=== PATIENT | male | born 1960 | race Two or more races ===

== ENCOUNTER 2016-07-30 19:35 | Inpatient (IN) | payer OTHER ==
[2016-07-30 19:48] VITALS: BMI 28.3
--- NOTE | 2016-07-30 20:03 | PDOC ---
History of Present Illness - General History Source: Patient Exam Limitations: No Limitations - History of Present Illness Initial Comments: 07/30/16 20:27 Patient is a 56 year old female with significant past medical history of hyperlipidemia, hypertension, and who presents to the ED with post epidural headache. Patient notes that he had his 3rd epidural yesterday done by Dr. Sierra for a collapsed L4-L5. He reports taking Ibuprofen 600 mg around 4 pm today to alleviate the symptoms. He notes that the headache is a frontal headache and has been constant since 11:30 am today. Patient is ambulating and denies any blurry vision or ataxia. Allergy - plavix PCP - Dr. Thorne <Marci San - Last Filed: 07/30/16 22:58> <Khadijah Yusuf - Last Filed: 07/31/16 01:17> - General Chief Complaint: Headache Stated Complaint: HEADACH/NAUSEA Time Seen by Provider: 07/30/16 19:56 Past History <Marci San - Last Filed: 07/30/16 22:58> - Past Medical History Cardiac Disorders: Yes (mi 13 yrs ago) Hypercholesterolemia: Yes Suicide Attempt (Hx): No - Surgical History Cardiac Surgery: Yes (cabg QUAD, 4 STENTS) Cholecystectomy: Yes - Psycho/Social/Smoking Cessation Hx Anxiety: No Suicidal Ideation: No Smoking Status: No Smoking History: Never smoked Number of Cigarettes Smoked Daily: 0 Cigars Per Day: 0 Hx Alcohol Use: No Drug/Substance Use Hx: No Substance Use Type: None <Khadijah Yusuf - Last Filed: 07/31/16 01:17> - Past Medical History Allergies/Adverse Reactions: Allergies Allergy/AdvReac Type Severity Reaction Status Date / Time clopidogrel bisulfate Allergy Intermediate Swelling Verified 07/30/16 19:45 [From Plavix] Home Medications: Ambulatory Orders Aspirin [Ecotrin] 81 mg PO DAILY 07/16/11 Atorvastatin Ca [Lipitor] 80 mg PO HS 07/16/11 Cetirizine HCl [Zyrtec -] 10 mg PO DAILY 06/05/14 Mometasone Furoate [Nasonex] 1 - 2 inh NS BID 06/05/14 Montelukast Na [Singulair -] 10 mg PO HS 06/05/14 Nebivolol HCl [Bystolic] 2.5 mg PO DAILY 07/30/16 Review of Systems - Review of Systems Able to Perform ROS?: Yes Comments:: 07/30/16 20:27 CONSTITUTIONAL: Absent: fever, chills, diaphoresis, generalized weakness, malaise, loss of appetite HEENT: Absent: rhinorrhea, nasal congestion, throat pain, throat swelling, difficulty swallowing, mouth swelling, ear pain, eye pain, visual Changes CARDIOVASCULAR: Absent: chest pain, syncope, palpitations, irregular heart rate, lightheadedness , peripheral edema RESPIRATORY: Absent: cough, shortness of breath, dyspnea with exertion, orthopnea, wheezing, stridor, hemoptysis GASTROINTESTINAL: Absent: abdominal pain, abdominal distension, nausea, vomiting, diarrhea, constipation, melena, hematochezia GENITOURINARY: Absent: dysuria, frequency, urgency, hesitancy, hematuria, flank pain, genital pain MUSCULOSKELETAL: Absent: myalgia, arthralgia, joint swelling SKIN: Absent: rash, itching, pallor HEMATOLOGIC/IMMUNOLOGIC: Absent: easy bleeding, easy bruising, lymphadenopathy, frequent infections ENDOCRINE: Absent: unexplained weight gain, unexplained weight loss, heat intolerance, cold intolerance NEUROLOGIC: Present: headache Absent: focal weakness or paresthesias, dizziness, unsteady gait, seizure, mental status changes, bladder or bowel incontinence PSYCHIATRIC: Absent: anxiety, depression, suicidal or homicidal ideation, hallucinations. <Marci San - Last Filed: 07/30/16 22:58> *Physical Exam - Vital Signs Last Vital Signs Temp Pulse Resp BP Pulse Ox 97.5 F L 76 18 120/76 96 07/30/16 19:45 07/30/16 19:45 07/30/16 19:45 07/30/16 19:45 07/30/16 19:45 - Physical Exam Comments: 07/30/16 20:28 GENERAL: Well developed, well nourished. Awake and alert. No acute distress. HEENT: Normocephalic, atraumatic. PERRLA, EOMI. No conjunctival pallor. Sclera are non- icteric. Moist mucous membranes. Oropharynx is clear. NECK: Supple. Full ROM. No JVD. Carotid pulses 2+ and symmetric, without bruits. No thyromegaly. No lymphadenopathy. CARDIOVASCULAR: Regular rate and rhythm. No murmurs, rubs, or gallops. Distal pulses are 2+ and symmetric. PULMONARY: No evidence of respiratory distress. Lungs clear to auscultation bilaterally. No wheezing, rales or rhonchi. ABDOMINAL: Soft. Non-tender. Non-distended. No rebound or guarding. No organomegaly. Normoactive bowel sounds. MUSCULOSKELETAL Normal range of motion at all joints. No bony deformities or tenderness. No CVA tenderness. EXTREMITIES: No cyanosis. No clubbing. No edema. No calf tenderness. SKIN: Warm and dry. Normal capillary refill. No rashes. No jaundice. NEUROLOGICAL: Alert, awake, appropriate. Cranial nerves 2-12 intact. No deficits to light touch and temperature in face, upper extremities and lower extremities. No motor deficits in the in face, upper extremities and lower extremities. Normoreflexic in the upper and lower extremities. Normal speech. Toes are down-going bilaterally. Gait is normal without ataxia. PSYCHIATRIC: Cooperative. Good eye contact. Appropriate mood and affect. <Marci San - Last Filed: 07/30/16 22:58> - Vital Signs Last Vital Signs Temp Pulse Resp BP Pulse Ox 97.5 F L 76 18 120/76 96 07/30/16 19:45 07/30/16 19:45 07/30/16 19:45 07/30/16 19:45 07/30/16 19:45 <Khadijah Yusuf - Last Filed: 07/31/16 01:17> ED Treatment Course - LABORATORY CBC & Chemistry Diagram: 07/30/16 20:30 07/30/16 20:30 - RADIOLOGY Radiology Studies Ordered: 07/30/16 22:53 EXAM: HEAD CT WITHOUT CONTRAST FINDINGS: There is no CT evidence of acute cortical territorial infarction, bleed, mass lesion, mass effect, hydrocephalus or abnormal extraaxial collection. Multiple scattered small intracranial air collection seen in the bilateral cavernous sinuses, pre-pontine cistern, tentorium and the posterior falx area, presumably introduced iatrogenically during the epidural injection procedure. No evidence of intraventricular air is seen. No evidence of acute skull fracture seen. Upper paranasal sinus cavities appear clear. No acute skull or skull base fracture or calvarial lesion is noted. <Marci San - Last Filed: 07/30/16 22:58> - LABORATORY CBC & Chemistry Diagram: 07/30/16 20:30 07/30/16 20:30 <Khadijah Yusuf - Last Filed: 07/31/16 01:17> Medical Decision Making - Medical Decision Making 07/30/16 20:54 A call was placed to Dr. Sierra at his office, but reached mail box. A call was placed to Dr. Sierra on his cellphone. Case discussed. 07/30/16 22:53 A page was placed to Dr. Joan Terrell at his service. 07/30/16 22:[address] Bert Terrell. A call was placed to Dr. Nicola Sierra at his cell to discuss the case. Case was discussed. <Marci San - Last Filed: 07/30/16 22:58> - Medical Decision Making 07/30/16 22:47 56-year-old male had seen his pain management doctor yesterday and received an epidural injection of steroids. He complained of a headache that was initially occipital and now it is frontal headache. He also has complaints of nausea. He does not have a fever. There is no visual changes. Patient is ambulatory. He is alert and oriented 3 Radiologist just called me and said apparently there is a puncture of the dura because there are small air bubbles that he sees on the patient's CAT scan of his head - I spoke with neurosurgery Dr Bert Terrell who stated I should address this issue with Dr Mack . I had already spoke to Dr Mack -the pt has been started on rocephin and vanco -this pt is to be NPO after midnight 07/31/16 01:15 <Khadijah Yusuf - Last Filed: 07/31/16 01:17> *DC/Admit/Observation/Transfer - Attestations Scribe Attestion: 07/30/16 20:28 Documentation prepared by LISA Montaño, acting as medical billing and coding specialist for Khadijah Yusuf MD. <Marci San - Last Filed: 07/30/16 22:58> - Discharge Dispostion Admit: Yes <Khadijah Yusuf - Last Filed: 07/31/16 01:17> Diagnosis at time of Disposition: Status post epidural steroid injection, Post-dural puncture headache Headache Qualifiers: Headache type: other headache syndrome Qualified Code(s): G44.89 - Other headache syndrome - Referrals Referrals: Orlando Thorne MD [Primary Care Provider] -
[2016-07-30] MEDS ORDERED: ONDANSETRON 4 MG/2 ML VIAL IVPUSH ONE (20:08)
[2016-07-30] MEDS ORDERED: SODIUM CHLORIDE 1,000 ML IV STA (20:09)
[2016-07-30] MEDS ORDERED: METOCLOPRAMIDE HCL INJECTION 10 MG/2 ML VIAL IVPUSH ONE (20:10)
[2016-07-30] MEDS ORDERED: METOCLOPRAMIDE HCL INJECTION 10 MG/2 ML VIAL ONE (20:33)
[2016-07-30] MEDS ORDERED: ONDANSETRON 4 MG/2 ML VIAL ONE (20:34)
[2016-07-30 20:44] LABS: BASOPHIL 0.1 % (0-2.0); MCH 29.5 pg (25.7-33.7); MCHC 33.5 g/dl (32.0-35.9); MEAN CELL VOLUME 88.1 fl (80-96); MEAN PLT VOLUME 8.8 fl (7.5-11.1); NEUTROPHILS 86.2 % (42.8-82.8); PLATELET COUNT 215 K/MM3 (134-434); RDW 14.3 % (11.9-15.9); WHITE BLOOD COUNT 19.2 K/mm3 (4.0-10.0)
[2016-07-30 21:04] LABS: ALBUMIN 3.8 g/dl (3.4-5.0); ANION GAP 8 (8-16); CO2 25 mmol/L (21-32); GLUCOSE,RANDOM 171 mg/dL (74-106); SGOT/AST 20 U/L (15-37)
[2016-07-30 21:11] LABS: ALK PHOS 68 U/L (45-117); SGPT/ALT 35 U/L (12-78); TOT PROT 6.9 g/dl (6.4-8.2)
[2016-07-30] MEDS ORDERED: CEFTRIAXONE 2 GM in DEXTROSE 5%-WATER - 100 ML IVPB ONE (23:02)
[2016-07-30] MEDS ORDERED: VANCOMYCIN 1,000 MG in DEXTROSE 5%-WATER - 250 ML IVPB ONE (23:03)
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
[2016-07-30] MEDS ORDERED: SODIUM CHLORIDE 1,000 ML IV SCH (23:45)
--- NOTE | 2016-07-31 00:12 | CONSULT ---
Consult Consult Specialty:: Pain management Reason for Consultation:: Headache - History of Present Illness Chief Complaint: Headache s/p Lumbar epidural steroid injection. History of Present Illness: 56 yr old male with h/o Chronic Low back pain with lumbar disk herniation had Lumbar epidural steroid injection on 07/29/2016. He has headache, nausia and was admitted to r/o spinal headache. CT head was done and WBC count was high. He also has h/o sinusitis. Currently his headache is 2/10 and sitting comfortably . - History Source History Provided By: Patient Limitations to Obtaining History: No Limitations - Past Medical History Cardio/Vascular: Yes: HTN, Other (CAD) ENT: Yes: Sinusitis - Past Surgical History Past Surgical History: Yes: CABG - Alcohol/Substance Use Hx Alcohol Use: No - Smoking History Smoking history: Never smoked Aproximately how many cigarettes per day: 0 - Social History Usual Living Arrangement: With Spouse Home Medications - Allergies Allergies/Adverse Reactions: Allergies Allergy/AdvReac Type Severity Reaction Status Date / Time clopidogrel bisulfate Allergy Intermediate Swelling Verified 07/30/16 19:45 [From Plavix] - Home Medications Home Medications: Ambulatory Orders Aspirin [Ecotrin] 81 mg PO DAILY 07/16/11 Atorvastatin Ca [Lipitor] 80 mg PO HS 07/16/11 Cetirizine HCl [Zyrtec -] 10 mg PO DAILY 06/05/14 Mometasone Furoate [Nasonex] 1 - 2 inh NS BID 06/05/14 Montelukast Na [Singulair -] 10 mg PO HS 06/05/14 Nebivolol HCl [Bystolic] 2.5 mg PO DAILY 07/30/16 Review of Systems - Review of Systems Constitutional: reports: Other (nausia) Eyes: reports: No Symptoms HENT: reports: No Symptoms Neck: reports: No Symptoms Cardiovascular: reports: No Symptoms Respiratory: reports: No Symptoms Gastrointestinal: reports: No Symptoms Genitourinary: reports: No Symptoms Musculoskeletal: reports: No Symptoms Neurological: reports: Other (Headache) Physical Exam Vital Signs: Vital Signs Temperature 97.5 F L 07/30/16 19:45 Pulse Rate 76 07/30/16 19:45 Respiratory Rate 18 07/30/16 19:45 Blood Pressure 120/76 07/30/16 19:45 O2 Sat by Pulse Oximetry (%) 96 07/30/16 19:45 Constitutional: Yes: Well Nourished Eyes: Yes: WNL HENT: Yes: WNL Neck: Yes: WNL Cardiovascular: Yes: WNL Respiratory: Yes: WNL Gastrointestinal: Yes: WNL Musculoskeletal: Yes: WNL Edema: No Peripheral Pulses WNL: Yes Neurological: Yes: WNL ...Motor Strength: WNL Labs: CBC, BMP 07/30/16 20:30 07/30/16 20:30 Current Medications Generic Name Dose Route Start Last Admin Trade Name Steph PRN Reason Stop Dose Admin Sodium Chloride 1,000 mls @ 75 mls/hr 07/30/16 23:45 Normal Saline - IV ASDIR [facility] Laboratory Results - last 24 hr 07/30/16 07/30/16 20:30 20:30 WBC 19.2 H D RBC 5.29 Hgb 15.6 Hct 46.6 MCV 88.1 MCHC 33.5 RDW 14.3 Plt Count 215 MPV 8.8 Neutrophils % 86.2 H D Lymphocytes % 7.6 L D Monocytes % 6.1 Eosinophils % 0.0 D Basophils % 0.1 Sodium 140 Potassium 4.2 Chloride 107 Carbon Dioxide 25 Anion Gap 8 BUN 13 D Creatinine 1.0 D Creat Clearance w eGFR > 60 Random Glucose 171 H D Calcium 9.0 Total Bilirubin 1.0 D AST 20 ALT 35 Alkaline Phosphatase 68 Total Protein 6.9 Albumin 3.8 Assessment/Plan Discussed in detail with patient and family member. continue current care. patient will be NPO. We will review CT head with Radiologist and reassess the patient, If needed , Blood patch patch may be done. patient will get IV antibiotics. Thanks for your kind referral.
[2016-07-31] MEDS ORDERED: VANCOMYCIN 1 GRAM (PRE-DOCKED) 250 ML IVPB ONE ×2 (00:16→09:33)
[2016-07-31] MEDS ORDERED: CEFTRIAXONE 100 ML IVPB ONE ×2 (00:16→09:33)
[2016-07-31] MEDS ORDERED: ACETAMINOPHEN INJECTION 100 ML IVPB ONE ×2 (06:58→14:30)
[2016-07-31] MEDS: ACETAMINOPHEN 1000 MG/100 ML VIAL (NON FORMULARY) IVPB PRN ×2 (07:05→14:31)
[2016-07-31 07:16] LABS: BASOPHIL 0.2 % (0-2.0); MCH 29.7 pg (25.7-33.7); MCHC 33.3 g/dl (32.0-35.9); MEAN CELL VOLUME 89.3 fl (80-96); MEAN PLT VOLUME 9.3 fl (7.5-11.1); NEUTROPHILS 82.7 % (42.8-82.8); PLATELET COUNT 185 K/MM3 (134-434); RDW 14.3 % (11.9-15.9); WHITE BLOOD COUNT 19.1 K/mm3 (4.0-10.0)
[2016-07-31 08:04] LABS: CALCIUM 9.1 mg/dL (8.5-10.1); CREATININE 0.9 mg/dL (0.7-1.3)
[2016-07-31] MEDS ORDERED: VANCOMYCIN 1 GRAM (PRE-DOCKED) 1,000 MG/250 ML BAG IVPB SCH (10:00)
[2016-07-31] MEDS ORDERED: CEFTRIAXONE 100 ML IVPB SCH (10:00)
--- NOTE | 2016-07-31 11:03 | EKG ---
Test Reason : Blood Pressure : / mmHG Vent. Rate : 079 BPM Atrial Rate : 079 BPM P-R Int : 180 ms QRS Dur : 092 ms QT Int : 404 ms P-R-T Axes : 043 -20 022 degrees QTc Int : 463 ms NORMAL SINUS RHYTHM POSSIBLE LEFT ATRIAL ENLARGEMENT INFERIOR INFARCT (CITED ON OR BEFORE 20-JUN-2007) ABNORMAL ECG WHEN COMPARED WITH ECG OF 31-JUL-2016 00:37, COMPARISON EKG NOT AVAILABLE Confirmed by GAEL MALDONADO MD ([id number]) on 07/31/2016 11:03:32 AM Referred By: Confirmed By:GAEL MALDONADO MD
--- NOTE | 2016-07-31 11:31 | PN ---
Progress Note (short form) - Note Progress Note: NEUROSURGERY CONSULT DICTATED 56 yo RH male with significant past medical history of hyperlipidemia, hypertension and recent sinusitis c/o spinal headaches post epidural injection on Sunday. This is his 3rd epidural yesterday done by Dr. Sierra for L4-L5 disc problem and B sciatica. Headache is a frontal and has been constant since yesterday AM. + Nausea. No fever/chill or neck stiffness/pain. Patient is ambulating and denies any photophobia, blurry vision or ataxia. NO B/B incontinence. PE: AF, VSS General- unremarkable, no nuchal rigidity CN- intact; Motor- B UE/LE 5/5; Sensation- intact LT/vibration; DTR- 1+ throughout Head CT- no bleed or fx, air in quadrigeminal cistern and supercerebellar cistern WBC 19.1 Spinal headaches s/p epidural Medical management and blood patch per Dr Sierra O2 to help pneumocephalus resolve Pt advised to be on bedrest and avoid straining DVT prophylaxis per medical team ID input The above d/w admitting team Ms Terrell
[2016-07-31] MEDS ORDERED: SODIUM CHLORIDE 1,000 ML IV SCH (14:53)
[2016-07-31] MEDS ORDERED: KETOROLAC TROMETHAMINE 30 MG/1 ML VIAL IVPUSH ONE (15:15)
--- NOTE | 2016-07-31 15:54 | PN ---
Progress Note (short form) - Note Progress Note: ID Consult dictated Pneumocephalus Headache secondary to pneumocephalus Doubt meningitis Leukocytosis, probably steroid-induced Obtain blood c/s Empiric vancomycin/ ceftazidime Repeat CBC Case discussed with Drs. Terrell and Mariela
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
--- NOTE | 2016-07-31 17:56 | PN ---
Progress Note (short form) - Note Progress Note: 56 yr old male with intermittent PRATT 2-3. getting better . Neurosurgical and ID consult appreciated. nausia resloved. PRATT is getting better. Discussed with Radiologist about CT head. Litttle pneumocoele noted and advised for repeat CT in 48 hrs. no B/B incontinence, Blood culture report Pending P/E VSS , AAO x3 , No neuerological deficit. sitting comfortably on bed. Family members were present. Labs - revuiwied. Laboratory Tests 07/30/16 07/30/16 07/31/16 20:30 20:30 06:05 WBC 19.2 H D 19.1 H RBC 5.29 5.18 Hgb 15.6 15.4 Hct 46.6 46.3 MCV 88.1 89.3 MCHC 33.5 33.3 RDW 14.3 14.3 Plt Count 215 185 MPV 8.8 9.3 Neutrophils % 86.2 H D 82.7 Lymphocytes % 7.6 L D 9.1 Monocytes % 6.1 8.0 Eosinophils % 0.0 D 0.0 Basophils % 0.1 0.2 Sodium 140 Potassium 4.2 Chloride 107 Carbon Dioxide 25 Anion Gap 8 BUN 13 D Creatinine 1.0 D Creat Clearance w eGFR > 60 Random Glucose 171 H D Calcium 9.0 Total Bilirubin 1.0 D AST 20 ALT 35 Alkaline Phosphatase 68 Total Protein 6.9 Albumin 3.8 07/31/16 06:15 WBC RBC Hgb Hct MCV MCHC RDW Plt Count MPV Neutrophils % Lymphocytes % Monocytes % Eosinophils % Basophils % Sodium 142 Potassium 4.9 Chloride 109 H Carbon Dioxide 26 Anion Gap 7 L BUN 12 Creatinine 0.9 Creat Clearance w eGFR Random Glucose 110 H D Calcium 9.1 Total Bilirubin AST ALT Alkaline Phosphatase Total Protein Albumin Impression. 1. spinal PRATT s/p dural Puncture. 2. sinusitis Plan: discussed in detail about spinal PRATT and blood patch. He preferred to go conservative management and observe if no improvement , then only Blood patch. Also wants to wait till blood culture report / Dr. Abreu advice. continue current care. Toradol 30 mg IM BID PRN Headache. Thanks Dr. Sierra.
[2016-07-31] MEDS: CEFTAZIDIME PENTAHYDRATE 2 GM in DEXTROSE 5%-WATER - 100 ML IVPB SCH (19:01)
[2016-07-31 20:35] LABS: URINE APPEARANCE CLEAR; URINE BILIRUBIN NEGATIVE (NEGATIVE); URINE BLOOD NEGATIVE (NEGATIVE); URINE COLOR STRAW; URINE GLUCOSE (UA) 1+ (NEGATIVE); URINE KETONE NEGATIVE (NEGATIVE); URINE LEUK ESTERASE NEGATIVE (NEGATIVE); URINE NITRITE NEGATIVE (NEGATIVE); URINE PROTEIN NEGATIVE (NEGATIVE); URINE UROBILINOGEN NEGATIVE E.U./dl (0.2-1.0)
--- NOTE | 2016-07-31 20:53 | CONS ---
DATE OF CONSULTATION: DATE OF DICTATION: 07/31/2016 INFECTIOUS DISEASE CONSULTATION HISTORY OF PRESENT ILLNESS: The patient is a 56-year-old male who is evaluated for possible meningitis. He has a history of chronic low back pain secondary to his collapsed L4-L5 vertebrae. He had undergone 3 epidural steroid injections the last one of which was on Friday July 29, 2016. After the injection, he developed occipital headache which later became a frontal headache and nausea. He presented to the emergency room where CAT scan of the head was performed and showed air in the bilateral cavernous sinuses and subarachnoid spaces. He was noted to have a white blood cell count of 19.1. He was empirically treated with vancomycin and ceftriaxone for possible [employer] infection. He denies any fever or chills. He has had no photophobia, neck pain or rigidity. He is ambulatory. At the present time, he is seated in bed. He is eating. He appears in no acute distress without evidence of photophobia or neck pain. He does have some mild discomfort at the low back area. PAST MEDICAL HISTORY: Positive for coronary artery disease, myocardial infarction, hypertension, hyperlipidemia. PAST SURGICAL HISTORY: Status post coronary artery stents, coronary artery bypass graft, cholecystectomy. ALLERGIES: PLAVIX. MEDICATION: Include Bystolic, Singulair, Zyrtec, Lipitor, Ecotrin. SOCIAL HISTORY: Lives at home with his significant other. Nonsmoker, nondrinker. SYSTEMS REVIEW: Neurologic: As per HPI. Cardiac: Negative chest pain or palpitations. Respiratory: Negative cough or sputum production. Gastrointestinal: Negative vomiting or diarrhea. Genitourinary: Negative for urinary tract infection. LABORATORY DATA: White count 19.1, 86 neutrophils, 7 lymphocytes, 6 monocytes, hematocrit 46.3, platelet count 185, creatinine 0.9. CAT scan as mentioned. PHYSICAL EXAMINATION: General: He is awake and alert, he is seated in bed, eating. He is in no acute distress. No photophobia. Vital signs: Temperature 97.8, blood pressure 99/50, pulse 53 regular, respirations 18 per minute. HEENT: Sclerae anicteric. Oropharynx negative. Neck: Supple. No tender to flexion, no nuchal rigidity. Cardiovascular: Heart sounds S1, S2. Respiratory: Lungs clear. Abdomen: Soft. No tenderness elicited. No mass, rebound, or rigidity. No tenderness elicited over the lumbar spine. Extremities: Negative for edema. IMPRESSION: 1. Pneumocephalus. 2. Headache secondary to pneumocephalus. 3. Doubt meningitis. 4. Leukocytosis probably steroid induced. Will obtain blood cultures, continue antibiotic coverage with vancomycin and ceftazidime pending cultures. Repeat CBC in a.m. Case was discussed with Drs. Sierra and Xander. Will follow. Thank you for the kind referral. IHSAN CARRILLO M.D. [id number]
[2016-07-31] MEDS: VANCOMYCIN 1 GRAM (PRE-DOCKED) 250 ML IVPB SCH (22:18)
[2016-07-31] MEDS: MONTELUKAST NA 10 MG TABLET PO SCH (22:18)
[2016-07-31] MEDS: ATORVASTATIN CA 80 MG TABLET (FP) PO SCH (22:18)
[2016-08-01] MEDS ORDERED: ZOLPIDEM TARTRATE 5 MG TABLET PO PRN (01:12)
[2016-08-01] MEDS: CEFTAZIDIME PENTAHYDRATE 2 GM in DEXTROSE 5%-WATER - 100 ML IVPB SCH ×3 (01:25→17:56)
[2016-08-01 07:55] LABS: BASOPHIL 0.1 % (0-2.0); EOSINOPHIL 0.1 % (0-4.5); MCH 29.6 pg (25.7-33.7); MCHC 33.5 g/dl (32.0-35.9); MEAN CELL VOLUME 88.4 fl (80-96); NEUTROPHILS 72.1 % (42.8-82.8); PLATELET COUNT 154 K/MM3 (134-434); RDW 14.5 % (11.9-15.9); WHITE BLOOD COUNT 12.2 K/mm3 (4.0-10.0)
--- NOTE | 2016-08-01 08:12 | PN ---
Progress Note (short form) - Note Progress Note: NEUROSURGERY Headaches OK overnight, worse this am again Some nausea PE: Tmax 98.3, AF, VSS General- unremarkable, no nuchal rigidity CN- intact; Motor- B UE/LE 5/5; Neck- no nuchal rigidity; Sensation- intact LT/ vibration; DTR- 1+ throughout Head CT- no bleed or fx, air in quadrigeminal cistern and supercerebellar cistern WBC 19.1; new CBC pending; blood and urine culture pending Spinal headaches s/p epidural Medical management and blood patch per Dr Sierra O2 to help pneumocephalus resolve Pt advised to be on bedrest and avoid straining DVT prophylaxis per medical team ID input noted; d/w Dr Abreu On vanco and ceftrixone prophylactically
[2016-08-01 08:34] LABS: ALBUMIN 3.1 g/dl (3.4-5.0); ALK PHOS 49 U/L (45-117); ANION GAP 8 (8-16); BILIRUBIN,TOTAL 0.8 mg/dL (0.2-1.0); CO2 27 mmol/L (21-32); CREATININE 0.9 mg/dL (0.7-1.3); GLUCOSE,RANDOM 102 mg/dL (74-106); SGOT/AST 10 U/L (15-37); SGPT/ALT 24 U/L (12-78); TOT PROT 5.7 g/dl (6.4-8.2)
[2016-08-01] MEDS ORDERED: ACETAMINOPHEN 325 MG TABLET (FP) PO PRN (09:22)
[2016-08-01] MEDS ORDERED: FAMOTIDINE 20 MG/50 ML IVPB 50 ML IVPB ONE (09:23)
[2016-08-01] MEDS ORDERED: KETOROLAC TROMETHAMINE 30 MG/1 ML VIAL IVPUSH PRN (09:23)
[2016-08-01] MEDS: SODIUM CHLORIDE 1,000 ML IV SCH (09:30)
[2016-08-01] MEDS: VANCOMYCIN 1 GRAM (PRE-DOCKED) 250 ML IVPB SCH ×2 (09:49→21:56)
[2016-08-01] MEDS ORDERED: NEBIVOLOL 2.5 MG TABLET (FP) PO SCH (10:00)
[2016-08-01] MEDS: NEBIVOLOL 2.5 MG TABLET (FP) PO SCH (10:03)
--- NOTE | 2016-08-01 12:44 | CONS ---
DATE OF CONSULTATION: 07/31/2016 REQUESTING PHYSICIAN: CARLOS Weber CHIEF COMPLAINT: Spinal headache. HISTORY OF PRESENT ILLNESS: The patient is a 56-year-old right-handed male with history of hypertension, VT, coronary stents, cardiac bypass surgery, hypercholesterolemia, as well as lumbar disk disease, who complains of increasing headache with associated nausea after an epidural steroid injection on Sunday. The headache started on Sunday morning and was associated with some nausea. The headache was becoming pounding and it was mostly frontal. He denies diplopia and had no neck stiffness or fever or chills. He did state that for about a couple weeks back, he had a history of sinusitis and was treated with Flonase and Zyrtec. Presently, he has no chest pain or shortness of breath. He has no other cardiac symptoms. This is his 3rd epidural steroid injection for his L4-5 herniated disk. He did experience sciatica radiating down to the buttocks, posterior thigh and calf. Past medical history is significant for hypertension, coronary artery disease, CABG, cardiac stent x4, right shoulder arthroscopic procedure, cholecystitis, hypercholesterolemia. Medication currently includes vancomycin, ceftriaxone, and Tylenol. Allergies to PLAVIX. In terms of social history, he does not smoke or drink. He works in the [employer]. Review of systems is otherwise negative for other major cardiovascular, pulmonary, gastrointestinal, genitourinary, endocrinological, neurological, or psychological problem except for the above. PHYSICAL EXAMINATION: Vital Signs: Temperature is 97.8, blood pressure is 117/51, pulse rate 59. HEENT: Normocephalic, atraumatic. Anicteric. Neck: Supple with no carotid bruit. He has no nuchal rigidity. Coronary: Regular rhythm. Lungs: Clear bilaterally. Abdomen: Benign. Extremities: No signs of DVT. Neurologic: He is awake and alert, oriented x4. Cranial nerves examination is intact, 2-12. Motor examination shows 5/5 strength in the upper and lower extremity. Sensory examination intact to light touch. Deep tendon reflexes are 1+ throughout. There is no pathological lower tract sign. Gait is not tested, for safety reasons. Laboratory examination shows white blood cell count to be 19,100, hemoglobin 15.1, and platelet count is 185,000. Serum sodium is 142 and potassium 4.9, BUN [address], [address] scan of the head demonstrated air near the subarachnoid space near the quadrigeminal cistern as well as the suprasellar cistern. There is no acute hemorrhage or fracture. There is no hydrocephalus. IMPRESSION: 1. Pneumocephalus with spinal headache, status post epidural injection. 2. Lumbar disk disease, L4-5, by report. 3. Coronary artery disease/hypertension, status post stent placement and coronary artery bypass surgery. 4. Hypercholesterolemia. 5. History of sinusitis. RECOMMENDATIONS: The patient presents with 1-day history of acute onset of frontal headaches, with associated mild nausea. This occurred after his 3rd epidural steroid injection about [address] scan demonstrated pneumocephalus in the quadrigeminal and suprasellar cisterns consistent with pneumocephalus. Given his spinal headache, potential blood patch will be reasonable and the patient should remain under the care of Dr. Sierra, the patient's pain management physician. He is started on vancomycin and ceftriaxone and infectious disease consultation is recommended. Supplemental O2 may help the pneumocephalus resolve and is ordered accordingly. Since the patient is under the care of another physician for his lumbar spine condition, I will leave the management and treatment to the patient's current treating physician, Dr. Sierra. ID consult is recommended to assess his elevated WBC. YING RODRIGUEZ M.D. [id number] MTDD
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
--- NOTE | 2016-08-01 15:18 | PN ---
Progress Note, Physician History of Present Illness: Reports improvement in headache C/O nausea No vomiting No fever/ chills Blood c/s (-) WBC improved - Current Medication List Current Medications: Active Medications Acetaminophen (Tylenol -) 650 mg PO Q4H PRN PRN Reason: FEVER OR PAIN Last Admin: 08/01/16 09:47 Dose: 650 mg Atorvastatin Calcium (Lipitor -) 80 mg PO HS [facility] Last Admin: 07/31/16 22:18 Dose: 80 mg Vancomycin HCl (Vancomycin (Pre-Docked)) 250 mls @ 200 mls/hr IVPB BID [facility] Last Admin: 08/01/16 09:49 Dose: 200 mls/hr Ceftazidime 2 gm/ Dextrose 100 mls @ 200 mls/hr IVPB Q8H-IV [facility] Last Admin: 08/01/16 09:49 Dose: 200 mls/hr Sodium Chloride (Normal Saline -) 1,000 mls @ 75 mls/hr IV ASDIR [facility] Last Admin: 08/01/16 09:30 Dose: 75 mls/hr Ketorolac Tromethamine (Toradol Injection -) 30 mg IVPUSH BID PRN PRN Reason: PAIN Stop: 08/06/16 09:59 Montelukast Sodium (Singulair -) 10 mg PO HS [facility] Last Admin: 07/31/16 22:18 Dose: 10 mg Nebivolol (Bystolic -) 2.5 mg PO DAILY [facility] Last Admin: 08/01/16 10:03 Dose: Not Given Zolpidem Tartrate (Ambien -) 5 mg PO HS PRN PRN Reason: INSOMNIA Last Admin: 08/01/16 01:26 Dose: 5 mg - Objective Vital Signs: Vital Signs Temperature 97.8 F 08/01/16 14:43 Pulse Rate 68 08/01/16 14:43 Respiratory Rate 20 08/01/16 14:43 Blood Pressure 121/73 08/01/16 14:43 O2 Sat by Pulse Oximetry (%) 94 L 07/31/16 21:00 Constitutional: Yes: No Distress Eyes: Yes: Other (no photophobia) Neck: Yes: Supple Cardiovascular: Yes: Regular Rate and Rhythm, S1, S2 Respiratory: Yes: CTA Bilaterally Gastrointestinal: Yes: Normal Bowel Sounds, Soft. No: Tenderness Edema: No Labs: CBC, BMP 08/01/16 06:20 08/01/16 06:20 Assessment/Plan Pneumocephalus Headache secondary to pneumocephalus Doubt meningitis For repeat CT head today Continue empiric antibiotics pending c/s
[2016-08-01] MEDS ORDERED: ONDANSETRON 4 MG/2 ML VIAL IVPUSH PRN (17:19)
[2016-08-01] MEDS: ATORVASTATIN CA 80 MG TABLET (FP) PO SCH (21:56)
[2016-08-01] MEDS: MONTELUKAST NA 10 MG TABLET PO SCH (21:56)
--- NOTE | 2016-08-01 22:45 | HOSP ---
Subjective - Review of Symptoms Events since last encounter: Hospitalist Encounter Notified by RN that the patient reports nausea, left chest pain and arm pain. EKG and Trop I ordered Arrived to bedside, patient is alert and oriented, reports left arm pain, left chest pain starting tonight. On exam see PE EKG- SB 50 with left atrial enlargement, inferior infarct age undetermined, change- bradycardia when compared to prior study Instructed RN to give Zofran and pain medicine, will continue to monitor. 0100- Notified by RN, Trop I result, added on CK, CKMB, per RN patient reports chest pain has decreased, patient is resting comfortably. Will transfer to Telemetry for monitoring Asa ordered Cardiac Consult-[facility] Will trend CE x2 Cardiovascular: Yes: Chest Pain Gastrointestinal: Yes: Nausea Musculoskeletal: Yes: Extremity Pain (left) Physical Examination Vital Signs: Vital Signs Temperature 97.4 F L 08/01/16 19:00 Pulse Rate 46 L 08/01/16 20:02 Respiratory Rate 20 08/01/16 20:02 Blood Pressure 112/73 08/01/16 20:02 O2 Sat by Pulse Oximetry (%) 96 08/01/16 09:00 Constitutional: Yes: Well Nourished, Calm Cardiovascular: Yes: Bradycardia, S1, S2, Other (chest pain is reproducible on palpation) Respiratory: Yes: WNL, Regular, CTA Bilaterally Neurological: Yes: WNL, Alert, Oriented Psychiatric: Yes: WNL, Alert, Oriented Labs: CBC, BMP 08/01/16 06:20 08/01/16 06:20
[2016-08-01] MEDS ORDERED: ONDANSETRON 4 MG/2 ML VIAL IVPUSH ONE (22:47)
[2016-08-01 23:35] LABS: TROPONIN I 0.1 ng/ml (0.00-0.05)
[2016-08-02] MEDS ORDERED: ASPIRIN 81 MG CHEWABLE TABLETS PO ONE (01:19)
[2016-08-02] MEDS: CEFTAZIDIME PENTAHYDRATE 2 GM in DEXTROSE 5%-WATER - 100 ML IVPB SCH ×2 (02:36→12:22)
[2016-08-02 04:29] LABS: TROPONIN I 0.09 ng/ml (0.00-0.05)
[2016-08-02 08:09] LABS: BASOPHIL 0.3 % (0-2.0); EOSINOPHIL 1.3 % (0-4.5); MCH 29.4 pg (25.7-33.7); MCHC 33.2 g/dl (32.0-35.9); MEAN CELL VOLUME 88.5 fl (80-96); MEAN PLT VOLUME 9.2 fl (7.5-11.1); NEUTROPHILS 56.5 % (42.8-82.8); PLATELET COUNT 164 K/MM3 (134-434); RDW 14.4 % (11.9-15.9); WHITE BLOOD COUNT 10.6 K/mm3 (4.0-10.0)
--- NOTE | 2016-08-02 09:04 | PN ---
Progress Note (short form) - Note Progress Note: NEUROSURGERY Headaches OK overnight, some nausea yesterday Tmax 98.3, HR 40-60 In telemetry General- unremarkable, no nuchal rigidity CN- intact; Motor- B UE/LE 5/5; Neck- no nuchal rigidity; Sensation- intact LT/ vibration; DTR- 1+ throughout Head CT- no bleed or fx, decreasing air in basal cistern WBC 10.6; trending down Troponin 0.09 and 0.10 Spinal headaches s/p epidural - improved Medical management for spinal disease per Dr Sierra Pt advised to avoid straining DVT prophylaxis per medical team ID input noted Consider cardiology input per medical team
[2016-08-02] MEDS ORDERED: PT OWN MED DRAWER 7, Y5N ONE (09:09)
[2016-08-02 09:16] LABS: ALBUMIN 3.2 g/dl (3.4-5.0); CO2 29 mmol/L (21-32)
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
[2016-08-02 09:48] LABS: ANION GAP 8 (8-16)
[2016-08-02 09:50] LABS: ALK PHOS 59 U/L (45-117); BILIRUBIN,TOTAL 0.8 mg/dL (0.2-1.0); CALCIUM 8.4 mg/dL (8.5-10.1); CHOLESTEROL 126 mg/dL (50-200); GLUCOSE,RANDOM 106 mg/dL (74-106); LDL CHOLESTEROL (ONLY SJRH) 64 mg/dL (5-100); PHOSPHOROUS 3.8 mg/dL (2.5-4.9); SGOT/AST 18 U/L (15-37); SGPT/ALT 29 U/L (12-78); TOT PROT 6.2 g/dl (6.4-8.2)
[2016-08-02] MEDS: SODIUM CHLORIDE 1,000 ML IV SCH (09:57)
[2016-08-02] MEDS: VANCOMYCIN 1 GRAM (PRE-DOCKED) 250 ML IVPB SCH (09:58)
[2016-08-02] MEDS: NEBIVOLOL 2.5 MG TABLET (FP) PO SCH (09:58)
[2016-08-02] MEDS ORDERED: amLODIPine BESYLATE 2.5 MG TABLET (FP) PO SCH (10:00)
[2016-08-02 11:29] LABS: TROPONIN I 0.09 ng/ml (0.00-0.05)
--- NOTE | 2016-08-02 12:48 | PN ---
Progress Note, Physician History of Present Illness: Headache, nausea improved No photophobia/ neck siffness No fever/ chills Cultures no growth - Current Medication List Current Medications: Active Medications Acetaminophen (Tylenol -) 650 mg PO Q4H PRN PRN Reason: FEVER OR PAIN Last Admin: 08/01/16 09:47 Dose: 650 mg Amlodipine Besylate (Norvasc -) 2.5 mg PO DAILY [facility] Last Admin: 08/02/16 11:12 Dose: 2.5 mg Atorvastatin Calcium (Lipitor -) 80 mg PO HS [facility] Last Admin: 08/01/16 21:56 Dose: 80 mg Vancomycin HCl (Vancomycin (Pre-Docked)) 250 mls @ 200 mls/hr IVPB BID [facility] Last Admin: 08/02/16 09:58 Dose: 200 mls/hr Ceftazidime 2 gm/ Dextrose 100 mls @ 200 mls/hr IVPB Q8H-IV [facility] Last Admin: 08/02/16 12:22 Dose: 200 mls/hr Ketorolac Tromethamine (Toradol Injection -) 30 mg IVPUSH BID PRN PRN Reason: PAIN Stop: 08/06/16 09:59 Montelukast Sodium (Singulair -) 10 mg PO HS [facility] Last Admin: 08/01/16 21:56 Dose: 10 mg Ondansetron HCl (Zofran Injection) 4 mg IVPUSH Q6H PRN PRN Reason: NAUSEA AND/OR VOMITING Last Admin: 08/01/16 17:47 Dose: 4 mg Zolpidem Tartrate (Ambien -) 5 mg PO HS PRN PRN Reason: INSOMNIA Last Admin: 08/01/16 01:26 Dose: 5 mg - Objective Vital Signs: Vital Signs Temperature 98.2 F 08/02/16 09:00 Pulse Rate 48 L 08/02/16 09:00 Respiratory Rate 14 08/02/16 09:00 Blood Pressure 126/76 08/02/16 09:00 O2 Sat by Pulse Oximetry (%) 96 08/01/16 21:00 Constitutional: Yes: No Distress Eyes: Yes: Conjunctiva Clear Neck: Yes: Supple Cardiovascular: Yes: Regular Rate and Rhythm, S1, S2 Respiratory: Yes: CTA Bilaterally Gastrointestinal: Yes: Normal Bowel Sounds, Soft. No: Tenderness Edema: No Labs: CBC, BMP 08/02/16 05:38 08/02/16 05:38 Assessment/Plan Pneumocephalus Headache secondary to pneumocephalus Doubt meningitis repeat CT head less air Cultures negative Discontinue antibiotics
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
[2016-08-02 17:21] VITALS: BP 106/60; PULSE 62; TEMP 98.2
--- NOTE | 2016-08-03 14:18 | EKG ---
Test Reason : Blood Pressure : / mmHG Vent. Rate : 050 BPM Atrial Rate : 050 BPM P-R Int : 158 ms QRS Dur : 098 ms QT Int : 462 ms P-R-T Axes : 046 -10 -10 degrees QTc Int : 421 ms SINUS BRADYCARDIA POSSIBLE LEFT ATRIAL ENLARGEMENT INFERIOR INFARCT (CITED ON OR BEFORE 20-JUN-2007) ABNORMAL ECG WHEN COMPARED WITH ECG OF 31-JUL-2016 00:37, VENT. RATE HAS DECREASED BY 29 BPM Confirmed by PIERO ALEJANDRO MD ([id number]) on 08/03/2016 2:17:55 PM Referred By: Confirmed By:PIERO ALEJANDRO MD
== END 2016-08-02 18:19 | disposition home or self-care (01) | DRG 663 ==
LOC: JER 19:35 → JERBED 07-31 01:37 → J5S 07-31 15:28 → J4W 08-02 02:08
PROVIDERS: ADMIT Internal Medicine; ATTEND Nurse Practitioner Acute Care
DX: T80.89XA Other complications following infusion, transfusion and therapeutic injection, initial encounter (principal); G93.89 Other specified disorders of brain; G44.40 Drug-induced headache, not elsewhere classified, not intractable; Y84.8 Other medical procedures as the cause of abnormal reaction of the patient, or of later complication, without mention of misadventure at the time of the procedure; Y92.89 Other specified places as the place of occurrence of the external cause; I10 Essential (primary) hypertension; E78.5 Hyperlipidemia, unspecified; I25.2 Old myocardial infarction; Z95.1 Presence of aortocoronary bypass graft; Z95.5 Presence of coronary angioplasty implant and graft; M51.26 Other intervertebral disc displacement, lumbar region; M51.17 Intervertebral disc disorders with radiculopathy, lumbosacral region; J32.8 Other chronic sinusitis; E83.51 Hypocalcemia; J45.909 Unspecified asthma, uncomplicated; I24.8 Other forms of acute ischemic heart disease; R00.1 Bradycardia, unspecified
CPT/HCPCS: 36415; 70450-TC; 71020-TC; 80048; 80053; 80061; 81003; 82550; 83721; 83735; 84100; 84484; 85025; 87040; 87086; 93005; 93010; 93306-TC; 99283-25

== ENCOUNTER 2021-09-05 04:34 | Day surgery (SDC) | payer BC ==
[2021-08-31 14:58] VITALS: BMI 27.8
[2021-09-05 09:55] LABS: URINE APPEARANCE CLEAR; URINE BILIRUBIN NEGATIVE (NEGATIVE); URINE COLOR YELLOW; URINE GLUCOSE (UA) NEGATIVE (NEGATIVE); URINE KETONE TRACE (NEGATIVE); URINE LEUK ESTERASE NEGATIVE (NEGATIVE); URINE NITRITE NEGATIVE (NEGATIVE); URINE PROTEIN NEGATIVE (NEGATIVE); URINE UROBILINOGEN 0.2 mg/dL (0.2-1.0)
[2021-09-05 11:07] LABS: ACTIVATED PTT 34.3 SECONDS (25.2-36.5); INR 1.08 (0.83-1.09); PROTHROMBIN TIME (PATIENT) 12.4 SEC (9.7-13.0)
[2021-09-05] MEDS ORDERED: LIDOCAINE HCL 1%, 10 MG/ML (20ML VIAL) ONE (11:39)
[2021-09-05] MEDS ORDERED: BUPIVACAINE HCL/PF 0.5% (5MG/ML) 10 ML VIAL ONE (11:39)
[2021-09-05] MEDS ORDERED: MIDAZOLAM HCL 2 MG/2 ML SINGLE DOSE VIAL ONE (12:13)
[2021-09-05] MEDS ORDERED: ceFAZolin 2 GRAM PREMIX BAG IVPB ONE ×2 (12:20→12:27)
[2021-09-05] MEDS ORDERED: BUPIVACAINE HCL/PF 0.5% (5MG/ML) 10 ML VIAL IJ ONE ×2 (12:27→13:09)
[2021-09-05] MEDS ORDERED: LIDOCAINE HCL 1%, 10 MG/ML (20ML VIAL) NR ONE ×2 (12:27→13:09)
[2021-09-05] MEDS ORDERED: DESFLURANE GAS 240 ML BOTTLE IH ONE (12:33)
[2021-09-05] MEDS ORDERED: ONDANSETRON 4 MG/2 ML VIAL IVPUSH PRN (12:38)
[2021-09-05] MEDS ORDERED: oxyCODONE HCL 5 MG TABLET PO PRN ×2 (12:38)
[2021-09-05] MEDS ORDERED: LACTATED RINGERS SOLUTION 1,000 ML IV SCH (12:45)
[2021-09-05 16:17] VITALS: BP 111/69; PULSE 70; TEMP 97
== END 2021-09-05 16:17 | disposition home or self-care (01) ==
LOC: JASU-SURG 04:34
PROVIDERS: ATTEND Orthopaedic Surgery
PROC: 0L833ZZ Division of Right Upper Arm Tendon, Percutaneous Approach (ICD-10-PCS; principal; 2021-09-05 11:00)
DX: M77.11 Lateral epicondylitis, right elbow (principal); S56.511A Strain of other extensor muscle, fascia and tendon at forearm level, right arm, initial encounter; X58.XXXA Exposure to other specified factors, initial encounter; Y92.9 Unspecified place or not applicable; I25.10 Atherosclerotic heart disease of native coronary artery without angina pectoris; I10 Essential (primary) hypertension
CPT/HCPCS: 36415; 81003; 85610; 85730; 88304-TC; 94760

== ENCOUNTER 2021-12-12 20:30 | Inpatient (IN) | payer BC ==
[2021-12-12 20:54] VITALS: BMI 27.8
[2021-12-12 23:14] LABS: BASO % 0.7 % (0-2.0); EOS % 1.5 % (0-4.5); HEMATOCRIT 47.6 % (35.4-49); MCH 30.2 pg (25.7-33.7); MCHC 33.6 g/dl (32.0-35.9); MEAN CELL VOLUME 89.8 fl (80-96); MEAN PLT VOLUME 8.2 fl (7.5-11.1); MONO % 9.8 % (3.8-10.2); PLATELET COUNT 191 10^3/uL (134-434); RDW 14.1 % (11.9-15.9); WHITE BLOOD COUNT 10.9 K/mm3 (4.0-10.0)
[2021-12-12 23:21] LABS: INR 1.12 (0.83-1.09); PROTHROMBIN TIME (PATIENT) 12.9 SEC (9.7-13.0)
[2021-12-12 23:24] LABS: ACTIVATED PTT 31.4 SECONDS (25.2-36.5)
[2021-12-12 23:38] LABS: ALBUMIN 3.8 g/dl (3.4-5.0); BLOOD UREA NITROGEN 16.6 mg/dL (7-18); CALCIUM 8.9 mg/dL (8.5-10.1); MAGNESIUM 2.2 mg/dL (1.8-2.4)
[2021-12-12 23:43] LABS: BILIRUBIN,TOTAL 1.2 mg/dL (0.2-1); TOT PROT 7.5 g/dl (6.4-8.2)
[2021-12-12] MEDS ORDERED: ASPIRIN 81 MG CHEWABLE TABLETS PO ONE (23:49)
[2021-12-12] MEDS ORDERED: ASPIRIN 81 MG CHEWABLE TABLETS ONE (23:55)
[2021-12-13] MEDS: INSULIN SLIDING SCALE (NOVOLOG) 1 VIAL SQ SCH ×2 (07:03→12:50)
[2021-12-13 08:27] LABS: BASO % 0.7 % (0-2.0); EOS % 2.5 % (0-4.5); HEMATOCRIT 49.4 % (35.4-49); HEMOGLOBIN 16.6 GM/dL (11.7-16.9); LYMPH % 27.8 % (8-40); MCH 30.3 pg (25.7-33.7); MCHC 33.6 g/dl (32.0-35.9); MEAN PLT VOLUME 8.4 fl (7.5-11.1); MONO % 11.8 % (3.8-10.2); NEUT % 57.2 % (42.8-82.8); PLATELET COUNT 199 10^3/uL (134-434); RBC 5.49 M/mm3 (4.00-5.60); RDW 14.3 % (11.9-15.9); WHITE BLOOD COUNT 6.7 K/mm3 (4.0-10.0)
[2021-12-13 08:54] LABS: ALBUMIN 3.9 g/dl (3.4-5.0); BLOOD UREA NITROGEN 13.6 mg/dL (7-18); CALCIUM 9.3 mg/dL (8.5-10.1); MAGNESIUM 2.2 mg/dL (1.8-2.4)
[2021-12-13 08:56] LABS: PHOSPHOROUS 2.8 mg/dL (2.5-4.9)
[2021-12-13 08:58] LABS: BILIRUBIN,TOTAL 1.4 mg/dL (0.2-1); TOT PROT 7.8 g/dl (6.4-8.2)
[2021-12-13] MEDS ORDERED: CARVEDILOL 6.25 MG TABLET (FP) PO SCH ×2 (10:00)
[2021-12-13] MEDS ORDERED: RANOLAZINE E.R. 500 MG TABLET (FP) PO SCH (10:00)
[2021-12-13] MEDS ORDERED: EZETIMIBE 10 MG TABLET (FP) PO SCH (10:00)
[2021-12-13] MEDS ORDERED: VORAPAXAR SULFATE 2.08 MG PO SCH (10:00)
[2021-12-13] MEDS ORDERED: VALSARTAN 40 MG TABLET PO SCH (10:00)
[2021-12-13] MEDS ORDERED: ENOXAPARIN NA (PORCINE) 40 MG/0.4 ML DISP.SYRIN SQ SCH (10:00)
[2021-12-13] MEDS ORDERED: LORATADINE 10 MG TABLET PO SCH (10:00)
[2021-12-13] MEDS ORDERED: FLUTICASONE PROPIONATE NS SCH (10:00)
[2021-12-13] MEDS ORDERED: ASPIRIN COATED 81 MG TABLET.EC PO SCH (10:00)
[2021-12-13] MEDS ORDERED: VALSARTAN 80 MG TABLET ONE (10:38)
[2021-12-13] MEDS ORDERED: ASPIRIN COATED 81 MG TABLET.EC ONE (10:38)
[2021-12-13] MEDS ORDERED: LORATADINE 10 MG TABLET ONE (10:38)
[2021-12-13] MEDS ORDERED: RANOLAZINE E.R. 500 MG TABLET (FP) ONE (10:39)
[2021-12-13] MEDS ORDERED: CARVEDILOL 6.25 MG TABLET (FP) ONE (10:39)
[2021-12-13] MEDS ORDERED: ENOXAPARIN NA (PORCINE) 40 MG/0.4 ML DISP.SYRIN SQ ONE (10:40)
[2021-12-13 12:25] LABS: EPI CELLS 2 /uL (0-25.1); HYALINE CASTS 0 /uL (0-3.1); PH,URINE 5.5 (5.0-8.0); URINE APPEARANCE CLEAR; URINE BACTERIA 14 /uL (0-1359); URINE BILIRUBIN NEGATIVE (NEGATIVE); URINE COLOR YELLOW; URINE GLUCOSE (UA) NEGATIVE (NEGATIVE); URINE KETONE NEGATIVE (NEGATIVE); URINE LEUK ESTERASE TRACE (NEGATIVE); URINE NITRITE NEGATIVE (NEGATIVE); URINE PROTEIN NEGATIVE (NEGATIVE); URINE RBC 3 /uL (0-23.9); URINE UROBILINOGEN 0.2 mg/dL (0.2-1.0); URINE WBC 8 /uL (0-25.8)
[2021-12-13 12:35] LABS: METHADONE, UR NEGATIVE (NEGATIVE); PHENCYCLIDINE,URINE NEGATIVE (NEGATIVE); URINE BENZODIAZEPINES NEGATIVE (NEGATIVE)
[2021-12-13 12:36] LABS: COCAINE, UR NEGATIVE (NEGATIVE); OPIATES, URI NEGATIVE (NEGATIVE); URINE BARBITURATES NEGATIVE (NEGATIVE)
[2021-12-13 12:38] LABS: URINE AMPHETAMINES NEGATIVE (NEGATIVE)
[2021-12-13 15:23] VITALS: BP 135/72; PULSE 67; TEMP 97.3
[2021-12-13] MEDS ORDERED: ATORVASTATIN CA 40 MG TABLET (FP) PO SCH (22:00)
[2021-12-13] MEDS ORDERED: MONTELUKAST NA 10 MG TABLET PO SCH (22:00)
== END 2021-12-13 17:17 | disposition home or self-care (01) | DRG 948 ==
LOC: JER 20:30 → JERBED 12-13 00:04
PROVIDERS: ADMIT Internal Medicine
DX: R53.1 Weakness (principal); I25.119 Atherosclerotic heart disease of native coronary artery with unspecified angina pectoris; Z98.61 Coronary angioplasty status; I11.9 Hypertensive heart disease without heart failure; Z95.1 Presence of aortocoronary bypass graft; E78.5 Hyperlipidemia, unspecified; R00.1 Bradycardia, unspecified
CPT/HCPCS: 36415; 71046-TC-FY; 80053; 80061; 80307; 81003; 82962; 83036; 83735; 84100; 84443; 84484; 85025; 85610; 85730; 87086; 93005; 93010; 93306-TC; 99285-25; C9803-CS; U0003; U0005

== ENCOUNTER 2022-05-24 14:44 | Emergency (ER) | payer BC ==
[2022-05-24 15:01] VITALS: BP 140/84; PULSE 64; RESP 16; TEMP 98.2; BMI 27.4
[2022-05-24 16:10] LABS: ALBUMIN 3.8 g/dl (3.4-5.0); BILIRUBIN,TOTAL 1.2 mg/dl (0.2-1); CALCIUM 8.9 mg/dl (8.5-10); CREATININE 0.9 mg/dl (0.55-1.3); TOT PROT 7.2 g/dl (6.4-8.2)
[2022-05-24 16:46] LABS: HEMATOCRIT 47.5 % (35.4-49); HEMOGLOBIN 15.8 G/dL (11.7-16.9); MCH 28.8 pg (25.7-33.7); MCHC 33.2 g/dl (32.0-35.9); MEAN CELL VOLUME 86.8 fl (80-96); MEAN PLT VOLUME 8.7 fl (7.5-11.1); PLATELET COUNT 227.4 10^3/uL (134-434); RBC 5.47 10^6/uL (4.00-5.60); RDW 17.3 % (11.9-15.9); WHITE BLOOD COUNT 8.4 10^3/uL (4.0-10.8)
[2022-05-24 16:49] LABS: ADD RBC MORPHOLOGY NO
[2022-05-24 17:01] LABS: ANISOCYTOSIS 1+; PLATELET ESTIMATE ADEQUATE
== END 2022-05-24 17:46 | disposition home or self-care (01) ==
LOC: FER 14:44
DX: R53.81 Other malaise (principal); R53.83 Other fatigue
CPT/HCPCS: 36415; 71045-TC-FY; 80053; 84443; 84484; 85025; 93005; 99285-25; C9803-CS; U0003; U0005

== ENCOUNTER 2022-06-28 04:16 | Day surgery (SDC) | payer BC ==
[2022-06-23 15:28] VITALS: BMI 27.1
[2022-06-28] MEDS ORDERED: MIDAZOLAM HCL 2 MG/2 ML SINGLE DOSE VIAL ONE (10:16)
[2022-06-28] MEDS ORDERED: FENTANYL CITRATE/PF 50 MCG/ML VIAL ONE (10:16)
[2022-06-28] MEDS ORDERED: ROPIVACAINE HCL 0.5% 30ML VIAL ONE (10:17)
[2022-06-28] MEDS ORDERED: LIDOCAINE HCL 2% (20ML MULTI-DOSE VIAL) ONE (10:17)
[2022-06-28] MEDS ORDERED: ceFAZolin SODIUM 1 GM VIAL IVPB ONE (10:55)
[2022-06-28] MEDS ORDERED: ONDANSETRON 4 MG/2 ML VIAL IVPUSH PRN (11:05)
[2022-06-28] MEDS ORDERED: oxyCODONE HCL 5 MG TABLET PO PRN (11:05)
[2022-06-28] MEDS ORDERED: LACTATED RINGERS SOLUTION 1,000 ML IV SCH (11:15)
[2022-06-28] MEDS ORDERED: ACETAMINOPHEN 1000 MG/100 ML BAG IVPB ONE (11:51)
[2022-06-28] MEDS ORDERED: ACETAMINOPHEN INJECTION 100 ML IVPB ONE (12:06)
[2022-06-28 12:43] VITALS: RESP 20
[2022-06-28 14:12] VITALS: BP 109/68; PULSE 74; TEMP 97.8
== END 2022-06-28 14:15 | disposition home or self-care (01) ==
LOC: JASU-SURG 04:16
PROVIDERS: ATTEND Orthopaedic Surgery
PROC: 0RBK4ZZ Excision of Left Shoulder Joint, Percutaneous Endoscopic Approach (ICD-10-PCS; 2022-06-28)
PROC: 0PBB4ZZ Excision of Left Clavicle, Percutaneous Endoscopic Approach (ICD-10-PCS; principal; 2022-06-28 09:30)
DX: M75.42 Impingement syndrome of left shoulder (principal); M13.812 Other specified arthritis, left shoulder
CPT/HCPCS: 94760

== ENCOUNTER → 2024-02-21 | Day surgery (SDC) | payer OTHER ==
[2024-02-18 14:40] VITALS: BMI 26.6
[~2024-02-21] MED LIST: ACETAMINOPHEN INJECTION 100 ML IVPB ONE; BACITRACIN ZINC 15 GM TUBE TOPICAL OINTMENT ONE; DEXAMETHASONE SOD PHOSPHATE 4 MG/1 ML VIAL ONE; LIDOCAINE 1%/EPI 1:100000 (20 ML MULTI DOSE VIAL) ONE; MIDAZOLAM HCL 2 MG/2 ML SINGLE DOSE VIAL ONE; ONDANSETRON 4 MG/2 ML VIAL IVPUSH PRN; ONDANSETRON 4 MG/2 ML VIAL ONE; PROPOFOL 40 ML ONE; ROCURONIUM BROMIDE 50 MG/5 ML SYRINGE ONE; SUCCINYLCHOLINE CHLORIDE 200 MG/10 ML SYRINGE ONE; SUGAMMADEX SODIUM 200 MG/2 ML VIAL ONE
[2024-02-21] MEDS: ceFAZolin SODIUM 1 GM VIAL IVPB ONE (08:20)
[2024-02-21] MEDS: OXYMETAZOLINE 0.05% NASAL SOLUTION 15 ML BOTTLE NS ONE (08:30)
[2024-02-21] MEDS: LIDOCAINE 1%/EPI 1:100000 (20 ML MULTI DOSE VIAL) IJ ONE ×3 (09:45)
[2024-02-21] MEDS: LACTATED RINGERS SOLUTION 1,000 ML IV SCH (10:20)
[2024-02-21] MEDS: ACETAMINOPHEN 1000 MG/100 ML BAG IVPB ONE (10:26)
[2024-02-21 12:36] VITALS: RESP 16
[2024-02-21 13:07] VITALS: BP 124/63; PULSE 62; TEMP 98.2
== END | disposition home or self-care (01) ==
LOC: JASU-SURG 04:19
PROVIDERS: ATTEND Otolaryngology
PROC: 09TU8ZZ Resection of Right Ethmoid Sinus, Via Natural or Artificial Opening Endoscopic (ICD-10-PCS; 2024-02-21)
PROC: 8E09XBZ Computer Assisted Procedure of Head and Neck Region (ICD-10-PCS; 2024-02-21)
PROC: 09TV8ZZ Resection of Left Ethmoid Sinus, Via Natural or Artificial Opening Endoscopic (ICD-10-PCS; principal; 2024-02-21 08:00)
DX: J32.4 Chronic pansinusitis (principal); J34.3 Hypertrophy of nasal turbinates
CPT/HCPCS: 88304-TC; 94760; J0131